=== PATIENT | female | born 1965 | race Caucasian/White ===

== ENCOUNTER → 2019-04-09 | Outpatient (CLI) | payer OTHER ==
[2019-04-11 12:37] LABS: ANTINUCLEAR ANTIBODIES Negative (Negative)
== END ==
LOC: LAB 16:55
PROVIDERS: ATTEND Internal Medicine Gastroenterology
DX: R94.5 Abnormal results of liver function studies (principal)
CPT/HCPCS: 36415; 83540; 86038; 86256